=== PATIENT | female | born 1975 | race Caucasian/White ===

== ENCOUNTER → 2021-03-26 | Emergency (ER) | payer OTHER ==
[~2021-03-26] VITALS: Ht 170.2 cm; Wt 63.5 kg
[~2021-03-26] MED LIST: PAXIL
== END | disposition home or self-care (01) ==
LOC: ER 10:05
DX: N93.8 Other specified abnormal uterine and vaginal bleeding (principal)

== ENCOUNTER 2021-07-04 15:54 | Emergency (ER) | payer OTHER ==
[~2021-07-04] VITALS: Ht 167.6 cm; Wt 68.5 kg
== END 2021-07-04 19:16 | disposition home or self-care (01) ==
LOC: ER 15:54
DX: D64.9 Anemia, unspecified (principal)